=== PATIENT | male | born 1985 | race Two or more races ===

== ENCOUNTER 2017-03-07 09:43 | Emergency (ER) | payer OTHER ==
[~2017-03-07] VITALS: Ht 180.3 cm; Wt 90.7 kg
[2017-03-07 09:43] VITALS: BP 159/108
--- NOTE | 2017-03-07 09:50 | NUR ---
PATIENT TO ED DT BOTH UPPER ARM MULTIPLE LACERATION. NOTED PATIENT WITH MULTIPLE LACERATION WITH ACTIVE BLEEDING. PATIENT IS AAO4. VSS. PENDING MD CHEN.
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
[2017-03-07 10:22] LABS: BASOPHILS # (AUTO) 0.1 /CMM (0.0-0.2); BASOPHILS % (AUTO) 0.5 % (0.0-2.0); EOSINOPHILS # (AUTO) 0.1 /CMM (0.0-0.7); EOSINOPHILS % (AUTO) 0.7 % (0.0-6.0); HEMATOCRIT 46 % (39-51); HEMOGLOBIN 16.2 g/dL (13.5-17.5); LYMPHOCYTES # (AUTO) 2.2 /CMM (0.8-4.8); LYMPHOCYTES % (AUTO) 13.5 % (20.0-44.0); MEAN CORPUSCULAR HEMOGLOBIN 30 PG (26.0-33.0); MEAN CORPUSCULAR HGB CONC 35 g/dl (31.0-36.0); MEAN CORPUSCULAR VOLUME 87 fL (80-96); MONOCYTES # (AUTO) 0.9 /CMM (0.1-1.30); MONOCYTES % (AUTO) 5.4 % (2.0-12.0); NEUTROPHILS # (AUTO) 12.9 /CMM (1.8-8.9); NEUTROPHILS % (AUTO) 79.9 % (43.0-81.0); PLATELET COUNT (AUTO) 289 /CMM (150-450); RDW COEFFICIENT OF VARIATION 13.2 (11.5-15.0); RED BLOOD CELL COUNT(AUTO) 5.33 MIL/uL (4.5-6.0); WHITE BLOOD COUNT (AUTO) 16.2 K/uL (4.3-11.0)
[2017-03-07 10:33] LABS: CALCIUM, SERUM 9.5 mg/dL (8.5-10.1); CARBON DIOXIDE 22 mmol/L (21-32); CHLORIDE 99 mmol/L (98-107); GLUCOSE 105 mg/dL (74-106); POTASSIUM 3.4 mmol/L (3.5-5.1); SODIUM SERUM 137 mmol/L (136-145); UREA NITROGEN, BLOOD 13 mg/dL (7-18)
[2017-03-07 10:39] LABS: ALANINE AMINOTRANSFERASE 105 U/L (12-78); ALBUMIN 4.5 g/dL (3.4-5.0); ALCOHOL, BLOOD 38 mg/dL (0-0); ALKALINE PHOSPHATASE 86 U/L (46-116); ASPARTATE AMINOTRANSFERASE 54 U/L (15-37); BILIRUBIN,DIRECT 0.1 mg/dL (0.0-0.2); BILIRUBIN,TOTAL 0.5 mg/dL (0.2-1.0); SALICYLATE 4.3 mg/dL (2.8-20.0); TOTAL PROTEIN, SERUM 9.4 g/dL (6.4-8.2)
[2017-03-07 10:40] LABS: ACETAMINOPHEN < 2 ug/ml (10-30)
[2017-03-07 11:25] LABS: APPEARANCE,URINE Clear (CLEAR); BILIRUBIN,URINE Negative (NEGATIVE); BLOOD, URINE Trace-intact Ery/uL (NEGATIVE); COLOR,URINE Yellow (YELLOW); KETONES,URINE 40 (NEGATIVE); LEUKOCYTE ESTERASE ,URINE Negative (NEGATIVE); NITRITE, URINE Negative (NEGATIVE); PROTEIN,URINE 100 mg/dl (NEGATIVE); UGLUCOSE Negative (NEGATIVE)
[2017-03-07 11:38] LABS: BACTERIA,URINE Rare /HPF (None Seen); SQUAMOUS EPITHELIAL CELL,UR Few /HPF (None Seen); WBC,URINE 0-2 /HPF (0-3)
--- NOTE | 2017-03-07 12:08 | NUR ---
Patient left from facility. ER MD aware.
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
== END 2017-03-07 12:21 | disposition left against medical advice (07) ==
LOC: ER 09:48
DX: S51.812A Laceration without foreign body of left forearm, initial encounter (principal); S51.811A Laceration without foreign body of right forearm, initial encounter; F32.9 Major depressive disorder, single episode, unspecified; F41.9 Anxiety disorder, unspecified; F15.10 Other stimulant abuse, uncomplicated; F17.200 Nicotine dependence, unspecified, uncomplicated; Z53.20 Procedure and treatment not carried out because of patient's decision for unspecified reasons; X78.1XXA Intentional self-harm by knife, initial encounter; Y93.89 Activity, other specified; Y92.89 Other specified places as the place of occurrence of the external cause; Y99.8 Other external cause status
CPT/HCPCS: 36415; 80048; 80076; 80305; 80329; 81001; 85025; 99284; A4606; A6402; G0480 ×2; Z7610; 81000-TC

== ENCOUNTER → 2017-03-07 | Emergency (ER) | payer OTHER ==
[~2017-03-07] VITALS: Ht 172.7 cm; Wt 77.1 kg
[~2017-03-07] MED LIST: HYDROCODONE/APAP 10/325MG 1 EA TABLET ONE; HYDROCODONE/APAP 10/325MG 1 EA TABLET PO ONE; IBUPROFEN 600 MG TABLET PO ONE; LIDOCAINE 1% INJ 50 ML MDV IJ ONE; LIDOCAINE 1%-EPI 1:100,000 50 ML VIAL IJ ONE
[2017-03-07 14:20] VITALS: BP 130/87
== END | disposition home or self-care (01) ==
LOC: ER 14:24
DX: S51.811A Laceration without foreign body of right forearm, initial encounter (principal); S51.812A Laceration without foreign body of left forearm, initial encounter; S50.812A Abrasion of left forearm, initial encounter; B19.20 Unspecified viral hepatitis C without hepatic coma; F32.9 Major depressive disorder, single episode, unspecified; F41.9 Anxiety disorder, unspecified; F17.200 Nicotine dependence, unspecified, uncomplicated; X78.8XXA Intentional self-harm by other sharp object, initial encounter; Y93.89 Activity, other specified; Y92.89 Other specified places as the place of occurrence of the external cause; Y99.8 Other external cause status
CPT/HCPCS: 12006; 99283; 99406; A4606; A6402; A6403; J3490; Z7610

== ENCOUNTER 2017-03-14 13:08 | Emergency (ER) | payer OTHER ==
[~2017-03-14] VITALS: Ht 180.3 cm; Wt 90.7 kg
[2017-03-14 13:16] VITALS: BP 119/71
--- NOTE | 2017-03-14 13:16 | NUR ---
PT BIB FAMILY TO ER BED 10. C/O BUE PAIN AND SWELLING, MULTIPLE SELF INFLICTED LAC. SUTURED A WEEK AGO. PER FAMILY PT IS AT A SOBER LIVING. SAAD CHEN.
--- NOTE | 2017-03-14 13:42 | NUR ---
MOTHERYaneth CAREY LEFT # [phone]
--- NOTE | 2017-03-14 13:57 | NUR ---
JOSEFA LUGO AT BEDSIDE FOR EVAL.
[2017-03-14] MEDS ORDERED: CEFAZOLIN 1 GM in IV D5W 50 ML IV ONE (14:30)
[2017-03-14] MEDS ORDERED: VANCOMYCIN 1 GM in IV D5W 250 ML IV ONE (14:30)
[2017-03-14] MEDS ORDERED: PIPERACILLIN /TAZOBACTAM 3.375 G in IV D5W 50 ML IV ONE (14:30)
--- NOTE | 2017-03-14 14:44 | NUR ---
REFUSING IV START AND BLOOD DRAW. PT ZACHD.
== END 2017-03-14 14:47 | disposition left against medical advice (07) ==
LOC: ER 13:12
DX: L08.89 Other specified local infections of the skin and subcutaneous tissue (principal); S51.812D Laceration without foreign body of left forearm, subsequent encounter; S51.811D Laceration without foreign body of right forearm, subsequent encounter; F41.9 Anxiety disorder, unspecified; F32.9 Major depressive disorder, single episode, unspecified; F17.200 Nicotine dependence, unspecified, uncomplicated; X58.XXXD Exposure to other specified factors, subsequent encounter
CPT/HCPCS: A4606; J0690; J2543; J7060; Z7502; Z7610

== ENCOUNTER 2017-07-15 07:41 | Emergency (ER) | payer OTHER ==
[~2017-07-15] VITALS: Ht 180.3 cm; Wt 86.2 kg
--- NOTE | 2017-07-15 07:45 | NUR ---
PT TO ED ROOM 06. NAUSEA, VOMITING, STOMACH PAIN S/P USING HEROIN ~ 2 DAYS AGO.
--- NOTE | 2017-07-15 07:46 | NUR ---
PT IS A/A/O. AMBULATORY WITH STEADY GAIT. SIDE RAISL UP. HOB ELEVATED. CONNECTED TO MONITOR.
[2017-07-15] MEDS ORDERED: ONDANSETRON HCL/PF - ER 4 MG/2 ML VIAL IV ONE (08:30)
[2017-07-15] MEDS ORDERED: IV NS 0.9% 1,000 ML IV ONE (08:30)
[2017-07-15] MEDS ORDERED: ONDANSETRON HCL/PF 4 MG/2 ML VIAL ONE (08:30)
[2017-07-15 08:47] LABS: ALBUMIN 4.5 g/dL (3.4-5.0); BILIRUBIN,TOTAL 1.1 mg/dL (0.2-1.0); CALCIUM, SERUM 9.9 mg/dL (8.5-10.1); CREATININE 0.8 mg/dL (0.6-1.3); TOTAL PROTEIN, SERUM 8.7 g/dL (6.4-8.2)
[2017-07-15 08:51] LABS: POTASSIUM 2.6 mmol/L (3.5-5.1)
[2017-07-15] MEDS ORDERED: POTASSIUM CL. PREMIX PERIPHER. 50 ML IV SCH (09:30)
[2017-07-15] MEDS ORDERED: CLONIDINE HCL 0.1 MG TABLET PO ONE (09:30)
[2017-07-15] MEDS ORDERED: POTASSIUM CHLORIDE 20 MEQ TAB.PRT.SR PO ONE ×4 (09:36→13:00)
[2017-07-15] MEDS ORDERED: CLONIDINE HCL 0.1 MG TABLET ONE (09:36)
[2017-07-15] MEDS: POTASSIUM CHLORIDE 10 MEQ/50 ML PREMIXED IVPB FOR PERIPHERAL LINE IV ONE (09:40)
[2017-07-15] MEDS ORDERED: POTASSIUM CL. PREMIX PERIPHER. 100 ML ONE (09:43)
[2017-07-15 12:50] VITALS: BP 120/78
--- NOTE | 2017-07-15 13:00 | NUR ---
Patient discharged to home in stable condition. Written and verbal after care instructions given. Patient verbalizes understanding of instruction.IV removed. Catheter intact and site benign. Pressure and 4x4 applied to site. No bleeding noted. Prescription given.
== END 2017-07-15 13:30 | disposition home or self-care (01) ==
LOC: ER 07:42
DX: F11.23 Opioid dependence with withdrawal (principal); E87.6 Hypokalemia; F32.9 Major depressive disorder, single episode, unspecified; F41.9 Anxiety disorder, unspecified; F17.200 Nicotine dependence, unspecified, uncomplicated; Z86.19 Personal history of other infectious and parasitic diseases
CPT/HCPCS: 36415; 80053-TC; A4606; J2405; J3480; J7030; Z7610

== ENCOUNTER 2017-07-22 22:18 | Emergency (ER) | payer OTHER ==
[~2017-07-22] VITALS: Ht 180.3 cm; Wt 86.2 kg
[2017-07-22 22:33] VITALS: BP 133/80
[2017-07-22] MEDS ORDERED: LORAZEPAM 1 MG TABLET PO ONE (23:00)
[2017-07-22] MEDS ORDERED: LORAZEPAM 1 MG TABLET ONE (23:00)
== END 2017-07-22 23:05 | disposition home or self-care (01) ==
LOC: ER 22:23
DX: F41.9 Anxiety disorder, unspecified (principal); F11.10 Opioid abuse, uncomplicated; R44.1 Visual hallucinations; F15.10 Other stimulant abuse, uncomplicated; F17.200 Nicotine dependence, unspecified, uncomplicated; F32.9 Major depressive disorder, single episode, unspecified; Z71.6 Tobacco abuse counseling; Z86.19 Personal history of other infectious and parasitic diseases
CPT/HCPCS: A4606; Z7610

== ENCOUNTER 2017-10-20 18:10 | Emergency (ER) | payer OTHER ==
[~2017-10-20] VITALS: Ht 175.3 cm; Wt 88.5 kg
[2017-10-20 18:21] VITALS: BP 130/81
[2017-10-20] MEDS ORDERED: KETOROLAC TROMETHAMINE INJ 30 MG/ML VIAL ONE (19:41)
[2017-10-20] MEDS ORDERED: ONDANSETRON HCL/PF 4 MG/2 ML VIAL ONE (19:51)
[2017-10-20] MEDS ORDERED: KETOROLAC TROMETHAMINE INJ 30 MG/ML VIAL IV ONE (20:00)
[2017-10-20] MEDS ORDERED: ONDANSETRON HCL/PF - ER 4 MG/2 ML VIAL IV ONE (20:00)
[2017-10-20] MEDS ORDERED: IV NS 0.9% 1,000 ML BAG IV ONE (20:00)
[2017-10-20 20:01] LABS: BASOPHILS # (AUTO) 0.1 /CMM (0.0-0.2); BASOPHILS % (AUTO) 0.7 % (0.0-2.0); EOSINOPHILS % (AUTO) 2.9 % (0.0-6.0); HEMATOCRIT 43 % (39-51); HEMOGLOBIN 14.4 g/dL (13.5-17.5); LYMPHOCYTES # (AUTO) 1.5 /CMM (0.8-4.8); LYMPHOCYTES % (AUTO) 19.4 % (20.0-44.0); MEAN CORPUSCULAR HEMOGLOBIN 29 PG (26.0-33.0); MEAN CORPUSCULAR HGB CONC 33 g/dl (31.0-36.0); MEAN CORPUSCULAR VOLUME 89 fL (80-96); MONOCYTES % (AUTO) 12.5 % (2.0-12.0); NEUTROPHILS # (AUTO) 5.1 /CMM (1.8-8.9); NEUTROPHILS % (AUTO) 64.5 % (43.0-81.0); PLATELET COUNT (AUTO) 219 /CMM (150-450); RDW COEFFICIENT OF VARIATION 12.4 (11.5-15.0); WHITE BLOOD COUNT (AUTO) 7.9 K/uL (4.3-11.0)
[2017-10-20 20:10] LABS: CALCIUM, SERUM 9.2 mg/dL (8.5-10.1); CREATININE 0.8 mg/dL (0.6-1.3); POTASSIUM 3.5 mmol/L (3.5-5.1)
== END 2017-10-20 21:31 | disposition home or self-care (01) ==
LOC: ER 18:15
DX: L03.116 Cellulitis of left lower limb (principal); F11.23 Opioid dependence with withdrawal; F32.9 Major depressive disorder, single episode, unspecified; F41.9 Anxiety disorder, unspecified; F17.200 Nicotine dependence, unspecified, uncomplicated; R53.1 Weakness; R11.2 Nausea with vomiting, unspecified
CPT/HCPCS: 36415; 80048; 83690; 85025; 96361; 96374; 99284; A4606; J2405; J7030; Z7610; J1885

== ENCOUNTER 2018-05-05 14:41 | Emergency (ER) | payer OTHER ==
[~2018-05-05] VITALS: Ht 180.3 cm; Wt 81.2 kg
[2018-05-05 15:08] VITALS: BP 101/60
[2018-05-05] MEDS ORDERED: CEPHALEXIN MONOHYDRATE 500 MG CAPSULE PO ONE ×2 (15:36→16:00)
[2018-05-05] MEDS ORDERED: IBUPROFEN 600 MG TABLET PO ONE ×2 (15:37→16:00)
[2018-05-05] MEDS ORDERED: SULFAMETH/TRIMETH 800/160 MG 1 UDTAB TABLET PO ONE ×2 (15:37→16:00)
== END 2018-05-05 16:15 | disposition home or self-care (01) ==
LOC: ER 14:42
DX: S51.811D Laceration without foreign body of right forearm, subsequent encounter (principal); L03.113 Cellulitis of right upper limb; F11.10 Opioid abuse, uncomplicated; F32.9 Major depressive disorder, single episode, unspecified; F41.9 Anxiety disorder, unspecified; F17.200 Nicotine dependence, unspecified, uncomplicated; F12.10 Cannabis abuse, uncomplicated; Z86.19 Personal history of other infectious and parasitic diseases; X78.9XXD Intentional self-harm by unspecified sharp object, subsequent encounter
CPT/HCPCS: 99284; 99406; A4606; A6407

== ENCOUNTER → 2018-06-05 | Emergency (ER) | payer OTHER ==
[~2018-06-05] VITALS: Ht 180.3 cm; Wt 70.8 kg
[2018-06-05 11:12] VITALS: BP 112/71
== END | disposition home or self-care (01) ==
LOC: ER 11:07
DX: L03.116 Cellulitis of left lower limb (principal); L02.416 Cutaneous abscess of left lower limb; F32.9 Major depressive disorder, single episode, unspecified; F41.9 Anxiety disorder, unspecified; F17.200 Nicotine dependence, unspecified, uncomplicated; F12.10 Cannabis abuse, uncomplicated; Z86.19 Personal history of other infectious and parasitic diseases

== ENCOUNTER 2018-08-08 09:50 | Emergency (ER) | payer OTHER ==
[~2018-08-08] VITALS: Ht 180.3 cm; Wt 83.5 kg
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
[2018-08-08] MEDS ORDERED: IBUPROFEN 400 MG TABLET PO ONE (10:30)
[2018-08-08] MEDS ORDERED: IBUPROFEN 400 MG TABLET ONE (10:46)
[2018-08-08] MEDS ORDERED: BUPR1FIL3 SL (11:33)
--- NOTE | 2018-08-08 11:37 | NUR ---
Rx provided, patient discharged to home in stable condition. Written and verbal after care instructions given. Patient verbalizes understanding of instruction.
[2018-08-08 11:39] VITALS: BP 118/71
== END 2018-08-08 11:40 | disposition home or self-care (01) ==
LOC: ER 09:51
DX: S20.211A Contusion of right front wall of thorax, initial encounter (principal); F32.9 Major depressive disorder, single episode, unspecified; F41.9 Anxiety disorder, unspecified; F17.200 Nicotine dependence, unspecified, uncomplicated; F12.10 Cannabis abuse, uncomplicated; Z86.19 Personal history of other infectious and parasitic diseases; W22.8XXA Striking against or struck by other objects, initial encounter; Y93.89 Activity, other specified; Y92.89 Other specified places as the place of occurrence of the external cause; Y99.8 Other external cause status
CPT/HCPCS: 71100-TC

== ENCOUNTER 2018-08-09 12:48 | Emergency (ER) | payer OTHER ==
[~2018-08-09] VITALS: Ht 180.3 cm; Wt 83.9 kg
[~2018-08-09 12:48] MED LIST changes: +BUPR1FIL3 SL; -HYDROCODONE/APAP 10/325MG 1 EA TABLET ONE; -HYDROCODONE/APAP 10/325MG 1 EA TABLET PO ONE; -IBUPROFEN 600 MG TABLET PO ONE; -LIDOCAINE 1% INJ 50 ML MDV IJ ONE; -LIDOCAINE 1%-EPI 1:100,000 50 ML VIAL IJ ONE
--- NOTE | 2018-08-09 13:05 | NUR ---
patient came to ER c/o depression and wants medrefill. On room air, breathing evenly and unlabored. Denies any pain at this time. kept comfortable, will continue to monitor accordingly.
[2018-08-09] MEDS ORDERED: OLANZAPINE 5 MG TABLET ONE (13:26)
[2018-08-09] MEDS ORDERED: OLANZAPINE 5 MG TABLET PO ONE (13:30)
[2018-08-09 13:56] VITALS: BP 120/71
--- NOTE | 2018-08-09 13:57 | NUR ---
Patient discharged to home in stable condition. Written and verbal after care instructions given. Patient verbalizes understanding of instruction.
== END 2018-08-09 13:56 | disposition home or self-care (01) ==
LOC: ER 12:48
DX: F32.9 Major depressive disorder, single episode, unspecified (principal); F41.9 Anxiety disorder, unspecified; F17.200 Nicotine dependence, unspecified, uncomplicated; Z76.0 Encounter for issue of repeat prescription; Z86.19 Personal history of other infectious and parasitic diseases